=== PATIENT | female | born 1960 | race African-American/Black ===

== ENCOUNTER 2019-12-29 14:45 | Emergency (ER) | payer MEDICARE, MEDICAID ==
[2019-12-29] MEDS ORDERED: Pantoprazole 40 MG VIAL ONE (15:21)
[2019-12-29] MEDS ORDERED: Ondansetron PF 4 MG/2 ML Vial ONE (15:21)
[2019-12-29 15:41] LABS: #Basophils 0.1 thou/uL (0.0-0.2); #Lymphocytes 2.7 thou/uL (1.20-3.40); #Monocytes 0.6 thou/uL (0.11-0.59); #Neutrophils 5.1 thou/uL (1.40-6.50); %Basophils 0.6 % (0.0-1.0); %Eosinophils 0.5 % (0.0-10.0); %Lymphocytes 32.1 % (21.0-51.0); %Monocytes 6.5 % (0.0-10.0); %Neutrophils 60.3 % (42.0-75.0); Hemoglobin 13.4 g/dL (12.0-16.0); Mean Corpuscular HGB CONC 32.8 g/dL (32.0-36.0); Mean Corpuscular Hemoglobin 27.1 pg (27.0-31.0); Mean Corpuscular Volume 82.6 fL (78.0-98.0); Mean Platelet Volume 9.2 fL (7.4-10.4); Platelet Count 286 thou/uL (130-400); RBC Distribution Width 16.2 % (11.5-14.5); Red Blood Cell (RBC) Count 4.96 mill/uL (4.20-5.40); White Blood Cell (WBC) Count 8.5 thou/uL (4.8-10.8)
[2019-12-29 15:45] LABS: INR-International Normal Ratio 1.1; PTT 26.8 SEC (22.9-36.1); Prothrombin Time 13.8 SEC (12.0-14.7)
[2019-12-29 15:49] LABS: ALT (SGPT) Less than 7 U/L (8-55); AST (SGOT) 14 U/L (5-34); Albumin 4.3 g/dL (3.5-5.0); Alkaline Phosphatase 99 U/L (40-110); Anion Gap 14 mmol/L (10-20); BUN (Urea Nitrogen) 5 mg/dL (9.8-20.1); Bilirubin, Total 0.9 mg/dL (0.2-1.2); Calc. Creatinine Clearance 0 mL/min (70-130); Calcium 9.4 mg/dL (7.8-10.44); Carbon Dioxide 25 mmol/L (22-29); Chloride 104 mmol/L (98-107); Estimated GFR-MDRD 73; Globulin 3.8 g/dL (2.4-3.5); Glucose 82 mg/dL (70-105); Lipase 7 U/L (8-78); Potassium 3.5 mmol/L (3.5-5.1); Protein, Total 8.1 g/dL (6.0-8.3); Sodium 139 mmol/L (136-145)
--- NOTE | 2019-12-29 15:55 | RAD ---
PORTABLE CHEST ONE VIEW: 12/29/19 at 3:48 p.m. HISTORY: Post EGD with nausea, vomiting, and acid reflux. FINDINGS: Comparison made with exam of 03/05/11. The heart size is normal. The aorta is tortuous. The lungs are expanded without lobar consolidation, pneumothoraces or pleural effusions. Dorsal stimulator leads are seen in the lower thoracic spine. T here are postop changes and metallic hardware in the lower cervical spine. IMPRESSION: No acute process. POS: [facility]
--- NOTE | 2019-12-31 09:30 | EKG ---
Test Reason : Blood Pressure : / mmHG Vent. Rate : 064 BPM Atrial Rate : 064 BPM P-R Int : 118 ms QRS Dur : 070 ms QT Int : 430 ms P-R-T Axes : 036 -26 033 degrees QTc Int : 443 ms Normal sinus rhythm Minimal voltage criteria for LVH, may be normal variant Borderline ECG Confirmed by DESIREE OROZCO, JAVAD Gaytan ([id number]), story editor MINNIE BARCLAY ([id number]) on 12/31/2019 9:29:40 AM Referred By: Confirmed By:JAVAD RAMÍREZ MD
== END 2019-12-29 16:46 | disposition home or self-care (01) ==
LOC: MERGE 14:45 → ERS 14:45
DX: R11.2 Nausea with vomiting, unspecified (principal); E78.00 Pure hypercholesterolemia, unspecified; F32.9 Major depressive disorder, single episode, unspecified; F17.210 Nicotine dependence, cigarettes, uncomplicated; Z79.899 Other long term (current) drug therapy; Z79.01 Long term (current) use of anticoagulants; Z86.711 Personal history of pulmonary embolism
CPT/HCPCS: 71045; 80053; 83690; 84484; 85025; 85610; 85730; 93005; 96365; 96375; C9113; J2405